=== PATIENT | male | born 1975 | race Caucasian/White ===

== ENCOUNTER 2024-05-30 14:23 | Outpatient (CLI) | payer BC, SELFPAY | END 2024-05-30 14:24 | disposition home or self-care (01) | PROVIDERS: PCP Family Medicine; Visit Provider Family Medicine | DX: F10.21 Alcohol dependence, in remission (principal); Z13.228 Encounter for screening for other metabolic disorders; Z13.220 Encounter for screening for lipoid disorders; Z12.5 Encounter for screening for malignant neoplasm of prostate | CPT/HCPCS: 80053; 80061; G0103 ==

== ENCOUNTER 2024-06-09 09:45 | Day surgery (SDC) | payer BC, SELFPAY ==
[2024-06-09] MEDS: LACTATED RINGERS 1000 ML 1,000 ML 100 ML IV (10:00)
[2024-06-09 10:02] VITALS: BMI 39.8
[2024-06-09 10:05] VITALS: BP 137/86; PULSE 63; RESP 20; TEMP 36.6; O2SAT 97
[2024-06-09] MEDS: SODIUM CHLORIDE 0.9 % (FLUSH) 10 ML SYRINGE IVF (10:18)
[2024-06-09] MEDS: BUPIVACAINE 0.25% 30 ML INJECTION (11:21)
--- NOTE | 2024-06-09 11:56 | PM.GSPRC ---
Operative Note Date of procedure: 06/09/24 Pre-op diagnosis: 1. Enlarging left buttocks cyst. Post-op diagnosis: Same Type of Procedure: 1. Excision of left buttock cyst. Indications: 48-year-old male was seen in clinic for evaluation of enlarging left buttock cyst. Patient had the cyst for multiple years. The cyst has been increasing in size gradually. Most recently it has become more painful. Patient described discomfort present when he was sitting for prolonged period of time. 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 He initially noticed drainage from the cyst but most recently there was no drainage. He denied any signs of infection. On clinical exam in the left superior mid buttocks there was a subcutaneous mass that was slightly bigger than the cyst golf ball. The center of the mass was raised and purple/dark erythematous in appearance with no cellulitis. There is no drainage noted. This was suspicious for a sebaceous cyst. Given patient's clinical history, excision of the cyst in the operating room was recommended. The procedure was discussed in detail. The risks associated procedure including infection, bleeding, seroma, and cyst recurrence were all discussed with the patient, and he agreed to proceed. Procedure Description: After discussing the risks and benefits of the procedure, the patient signed informed consent.? The operative site was marked and the patient was brought to the operating room and placed on the operating table in the lateral decubitus position.? Care was taken to pad the patient's pressure points.?? The patient was then sedated by anesthesia.?? The operative site was then prepped and draped in the usual sterile fashion.? A time-out was then performed. Local anesthetic was injected at the surgical site. A vertical elliptical skin incision was made with a scalpel excising the raised thinned out skin overlying the cyst. Dermis and subcutaneous tissues were divided with a scalpel and cautery. The cyst was then mobilized circumferentially and excised with cautery. The cyst was measuring 5 x 6 cm. It was sent to pathology. Lateral and medial skin flaps were developed with cautery. Additional local anesthetic was injected at the surgical site. The dermis was then reapproximated with interrupted 2-0 in 3-0 Vicryl sutures. The skin was closed with a running 4-0 Monocryl stitch. The length of the incision was 10 cm. Steri-Strips and sterile pressure dressing were placed over the incision. ? The patient was then woken and transported to the recovery area in stable condition. ? The patient tolerated the procedure well. Anesthesia: MAC and local Surgeon: Marii Loya MD Estimated blood loss (mL): 5 Additional Specimen Information: 1. Left buttock cyst. Condition: stable Disposition: same day
[2024-06-09 12:00] VITALS: BP 110/49; PULSE 84; RESP 20; TEMP 36.7; O2SAT 93
--- NOTE | 2024-06-09 12:12 | W.ANESCHARGE ---
Anesthesia Charges Start Date/Time Anesthesia Start Date: 06/09/24 Anesthesia Start Time: 10:57 Stop Date/Time Anesthesia Stop Date: 06/09/24 Anesthesia Stop Time: 11:58
[2024-06-09 12:15] VITALS: BP 115/89; PULSE 77; RESP 20; O2SAT 95
[2024-06-09 12:30] VITALS: BP 121/69; PULSE 63; RESP 20; O2SAT 95
== END 2024-06-09 12:52 | disposition home or self-care (01) ==
PROVIDERS: PCP Family Medicine; Visit Provider Surgery
PROC: (CPT 11406; principal; 2024-06-09 11:00)
DX: L72.11 Pilar cyst (principal)
CPT/HCPCS: 11406; 12034; 00300; 88304; J0665; J1100; J1885; J2250; J2405; J2704; J3490; J7120